=== PATIENT | female | born 1950 | race Two or more races ===

== ENCOUNTER 2025-10-03 08:44 | Outpatient (CLI) | payer OTHER | END 2025-10-03 08:45 | disposition home or self-care (01) | LOC: TOM 08:44 | PROVIDERS: ATTEND Internal Medicine Gastroenterology | DX: R10.13 Epigastric pain (principal); R63.4 Abnormal weight loss; R74.8 Abnormal levels of other serum enzymes | CPT/HCPCS: 74170; Q9965 ==

== ENCOUNTER 2025-11-04 10:00 | Outpatient (CLI) | payer OTHER | END 2025-11-04 10:06 | disposition home or self-care (01) | LOC: MRI 10:00 | PROVIDERS: ATTEND Internal Medicine Gastroenterology | DX: R10.13 Epigastric pain (principal); R93.2 Abnormal findings on diagnostic imaging of liver and biliary tract; K71.0 Toxic liver disease with cholestasis; R63.4 Abnormal weight loss | CPT/HCPCS: 74183; Q9965 ==